=== PATIENT | male | born 1960 | race Caucasian/White ===

== ENCOUNTER 2020-02-03 18:42 | Inpatient (IN) | payer BC ==
--- NOTE | 2020-02-03 19:52 | EDM.PDOC ---
ED HPI GENERAL MEDICAL PROBLEM - General Chief Complaint: Head Injury Stated Complaint: FALL HEAD INJURY NO SLEEP IN 4 DAYS Time Seen by Provider: 02/03/20 19:25 Source of Information: Reports: Patient, Family () History Limitations: Reports: Physical Impairment (Poor historian. Much of PMHx from his .) - History of Present Illness INITIAL COMMENTS - FREE TEXT/NARRATIVE: Mr. Szymanski is a pleasant 59-year-old man with a past medical history significant for hypertension, dyslipidemia, hypothyroidism, and GERD, status post a Venus fundoplication, who states that he has binge-pattern alcoholism, sober for the past 11 years, up until this past 01/27/2020, when his is out of town and he purchased 2 bottles of wine, a six pack of beer, and a fifth of vodka, which he then consumed over 2 to 3 days. He is not really sure what happened during that period of time, except that he has an abrasion on his right forehead and left knee, a bruise to his upper right abdomen and anterior right knee, and he found blood in his driveway, so he presumes that he fell down his front steps. The patient takes [place] for chronic back pain, along with Ambien for insomnia, and his counted that he is 8 pills short of [place] and 4 pills short of Ambien. The patient states that he has not been able to sleep for the past 4 days, but when asked why he did not come in earlier , he states that he was simply unable to get out of bed. He thinks that his last alcoholic beverage was Thursday or Thursday, 01/29/2020 or 01/30/2020. The patient states that he has had watery diarrhea this week, but he also states that he gained 20 pounds over the last weekend. Otherwise, the patient denies recent fever, chills, cough, dyspnea, chest pain, palpitations, nausea, vomiting, constipation, urinary symptoms, recent bloody bowel movements or black bowel movements, recent joint aches, headaches, or rashes. The patient's PCP is Dr. Yanick Vinson. His Orthopedic Surgeon is Dr. Danilo Taylor. His pain specialist is Dr. Kam Cardenas. He received an influenza vaccine this season. Headache Pain Score (Numeric/FACES): 6 - Related Data Allergies Allergy/AdvReac Type Severity Reaction Status Date / Time No Known Allergies Allergy Verified 02/03/20 19:13 Home Meds: Home Meds Celecoxib 200 mg PO DAILY 02/03/20 [History] Fish Oil/[place]-3 Fatty Acids [Fish Oil 1,000 MG] 1 cap PO DAILY 02/03/20 [ History] Hydrocodone/Acetaminophen [Hydrocodon-Acetaminophn 10-325] 1 each PO Q6H PRN [History] Levothyroxine [Synthroid] 100 mcg PO DAILY 02/03/20 [History] Lisinopril/Hydrochlorothiazide [Lisinopril-Hctz 20-25 mg Tab] 1 tab PO DAILY [History] Pravastatin Sodium [Pravastatin (Pravachol)] 40 mg PO DAILY 02/03/20 [History] Zolpidem Tartrate [Zolpidem Tartrate ER] 12.5 mg PO BEDTIME 02/03/20 [History] amLODIPine Besylate [Amlodipine Besylate] 5 mg PO DAILY 02/03/20 [History] tiZANidine [Zanaflex] 4 mg PO Q6H 02/03/20 [History] Past Medical History Cardiovascular History: Reports: High Cholesterol, Hypertension Gastrointestinal History: Reports: Colon Polyp, GERD (untreated), PUD (bleeding) Genitourinary History: Reports: Renal Calculus Musculoskeletal History: Reports: Back Pain, Chronic (DDD) Psychiatric History: Reports: Addiction (alcohol), Other (See Below) (Insomnia) Endocrine/Metabolic History: Reports: Hypothyroidism - Past Surgical History GI Surgical History: Reports: Venus Fundoplication Musculoskeletal Surgical History: Reports: Shoulder Surgery (bilateral, arthroscopic) Social & Family History - Tobacco Use Smoking Status *Q: Never Smoker - Alcohol Use Alcohol Use History: Yes Alcohol Use Frequency: Binges - Recreational Drug Use Recreational Drug Use: Yes Drug Use in Last 12 Months: No Recreational Drug Type: Reports: Marijuana/Hashish (last smoked in HS) - Living Situation & Occupation Living situation: Reports: , with Spouse Occupation: Unemployed ED ROS GENERAL - Review of Systems Review Of Systems: Comprehensive ROS is negative, except as noted in HPI. ED EXAM, GENERAL - Physical Exam Exam: See Below Exam Limited By: Altered Mental Status (Had some cognitive difficulties following neuro exam commands) General Appearance: Alert, WD/WN, No Apparent Distress Eye Exam: Bilateral Eye: EOMI, Normal Inspection, Periorbital Changes (small exchymoses to bilateral upper and lower eyelids), PERRL Ears: Normal External Exam, Normal Canal, Hearing Grossly Normal, Normal TMs Nose: Normal Inspection, Normal Mucosa, No Blood Throat/Mouth: Normal Inspection, Normal Lips, Normal Teeth, Normal Gums, Normal Oropharynx, Normal Voice, No Airway Compromise Head: Normocephalic, Other (scabbed-over abrasion right forehead) Neck: Normal Inspection, Supple, Non-Tender, Full Range of Motion. No: Lymphadenopathy (L), Lymphadenopathy (R) Respiratory/Chest: No Respiratory Distress, Lungs Clear, Normal Breath Sounds, No Accessory Muscle Use Cardiovascular: Normal Peripheral Pulses, Regular Rate, Rhythm, No Edema, No Gallop, No JVD, No Murmur, No Rub Peripheral Pulses: 4+: Radial (L), Radial (R) GI/Abdominal: Normal Bowel Sounds, Soft, No Organomegaly, No Distention, No Abnormal Bruit, No Mass, Tender (To site of subtle ecchymosis, RUQ. Nontender elsewhere.) (Male) Exam: Deferred Rectal (Males) Exam: Deferred Back Exam: Normal Inspection, Full Range of Motion, NT Extremities: Normal Range of Motion, No Pedal Edema, Normal Capillary Refill, Other (Scabbed abrasion over left patella. Ecchymosis without abrasion to anterior right knee.) Neurological: Alert, Oriented, CN II-XII Intact (had some cognitive difficulties following some commands, such as to follow my finger with his eyes , and to extend his leg - he contracted it instead - but once followed, no focal deficits were found), No Motor/Sensory Deficits, Confused (mild - his needed to correct his history several times) Psychiatric: Normal Affect Skin Exam: Warm, Dry, Normal Color, No Rash Course - Vital Signs Last Recorded V/S: Last Vital Signs Temp 36.7 C 02/03/20 19:09 Pulse 91 02/03/20 19:09 Resp 19 02/03/20 19:09 BP 130/107 H 02/03/20 19:09 Pulse Ox 97 02/03/20 19:09 - Orders/Labs/Meds Orders: Active Orders 24 hr Category Date Time Status Patient Status [ADT] Routine ADT 02/03/20 22:43 Active Bladder Scan [RC] ASDIRECTED Care 02/03/20 19:46 Active Cervical Spine wo Cont [CT] Stat Exams 02/03/20 19:44 Taken Head wo Cont [CT] Stat Exams 02/03/20 19:44 Taken CULTURE URINE [RM] Stat Lab 02/03/20 20:43 Received Labs: Laboratory Tests 02/03/20 02/03/20 02/03/20 Range/Units 20:25 20:25 20:25 WBC 19.08 H (4.23-9.07) K/mm3 RBC 4.58 L (4.63-6.08) M/mm3 Hgb 14.2 (13.7-17.5) gm/dl Hct 40.0 L (40.1-51.0) % MCV 87.3 D (79.0-92.2) fl MCH 31.0 (25.7-32.2) pg MCHC 35.5 (32.2-35.5) g/dl RDW Std Deviation 39.4 (35.1-43.9) fL Plt Count 286 (163-337) K/mm3 MPV 9.3 L (9.4-12.3) fl Neut % (Auto) 85.7 H (34.0-67.9) % Lymph % (Auto) 6.7 L (21.8-53.1) % [place] % (Auto) 7.1 (5.3-12.2) % Eos % (Auto) 0 L (0.8-7.0) Baso % (Auto) 0.0 L (0.1-1.2) % Neut # (Auto) 16.36 H (1.78-5.38) K/mm3 Lymph # (Auto) 1.27 L (1.32-3.57) K/mm3 [place] # (Auto) 1.36 H (0.30-0.82) K/mm3 Eos # (Auto) 0.00 L (0.04-0.54) K/mm3 Baso # (Auto) 0.00 L (0.01-0.08) K/mm3 Manual Slide Review Abnormal smear PT 10.7 (9.7-12.0) SECONDS INR 0.98 APTT 28 (22-31) SECONDS Sodium 122 L D (136-145) mEq/L Potassium 3.0 L (3.5-5.1) mEq/L Chloride 84 L D (98-107) mEq/L Carbon Dioxide 29 (21-32) mEq/L Anion Gap 12.0 (5-15) BUN 22 H (7-18) mg/dL Creatinine 2.0 H (0.7-1.3) mg/dL Est Cr Clr Drug Dosing 36.72 mL/min Estimated GFR (MDRD) 34 (>60) mL/min BUN/Creatinine Ratio 11.0 L (14-18) Glucose 107 H (74-106) mg/dL Calcium 9.6 (8.5-10.1) mg/dL Magnesium 2.0 (1.8-2.4) mg/dl Total Bilirubin 0.8 (0.2-1.0) mg/dL AST 89 H (15-37) U/L ALT 77 H (16-63) U/L Alkaline Phosphatase 88 (46-116) U/L Total Protein 8.1 (6.4-8.2) g/dl Albumin 3.8 (3.4-5.0) g/dl Globulin 4.3 gm/dL Albumin/Globulin Ratio 0.9 L (1-2) Urine Color (Yellow) Urine Appearance (Clear) Urine pH (5.0-8.0) Ur Specific [place] (1.005-1.030) Urine Protein (Negative) Urine Glucose (UA) (Negative) Urine Ketones (Negative) Urine Occult Blood (Negative) Urine Nitrite (Negative) Urine Bilirubin (Negative) Urine Urobilinogen (0.2-1.0) Ur Leukocyte Esterase (Negative) Urine RBC (0-5) /hpf Urine WBC (0-5) /hpf Ur Squamous Epith Cells (0-5) /hpf Urine Bacteria (FEW) /hpf Urine Mucus (FEW) /hpf Urine Opiates Screen (ZTFHFN=942) Ur Buprenorphine Scrn (CUTOFF=10) Ur Oxycodone Screen (ZNY3BV=418) Urine Methadone Screen (PHP2HB=691) Ur Propoxyphene Screen (MHURFX=243) Ur Barbiturates Screen (UVQYHE=562) Ur Tricyclics Screen (SUIOLT=894) Ur Phencyclidine Scrn (CUTOFF=25) Ur Amphetamine Screen (OMYIQS=869) U Methamphetamines Scrn (DCNXVW=572) U Benzodiazepines Scrn (RKTDGY=016) U Cocaine Metab Screen (CSYOZQ=954) U Marijuana (THC) Screen (CUTOFF=50) Ethyl Alcohol 0.00 (0.00) gm% 02/03/20 02/03/20 Range/Units 20:43 20:43 WBC (4.23-9.07) K/mm3 RBC (4.63-6.08) M/mm3 Hgb (13.7-17.5) gm/dl Hct (40.1-51.0) % MCV (79.0-92.2) fl MCH (25.7-32.2) pg MCHC (32.2-35.5) g/dl RDW Std Deviation (35.1-43.9) fL Plt Count (163-337) K/mm3 MPV (9.4-12.3) fl Neut % (Auto) (34.0-67.9) % Lymph % (Auto) (21.8-53.1) % [place] % (Auto) (5.3-12.2) % Eos % (Auto) (0.8-7.0) Baso % (Auto) (0.1-1.2) % Neut # (Auto) (1.78-5.38) K/mm3 Lymph # (Auto) (1.32-3.57) K/mm3 [place] # (Auto) (0.30-0.82) K/mm3 Eos # (Auto) (0.04-0.54) K/mm3 Baso # (Auto) (0.01-0.08) K/mm3 Manual Slide Review PT (9.7-12.0) SECONDS INR APTT (22-31) SECONDS Sodium (136-145) mEq/L Potassium (3.5-5.1) mEq/L Chloride (98-107) mEq/L Carbon Dioxide (21-32) mEq/L Anion Gap (5-15) BUN (7-18) mg/dL Creatinine (0.7-1.3) mg/dL Est Cr Clr Drug Dosing mL/min Estimated GFR (MDRD) (>60) mL/min BUN/Creatinine Ratio (14-18) Glucose (74-106) mg/dL Calcium (8.5-10.1) mg/dL Magnesium (1.8-2.4) mg/dl Total Bilirubin (0.2-1.0) mg/dL AST (15-37) U/L ALT (16-63) U/L Alkaline Phosphatase (46-116) U/L Total Protein (6.4-8.2) g/dl Albumin (3.4-5.0) g/dl Globulin gm/dL Albumin/Globulin Ratio (1-2) Urine Color Yellow (Yellow) Urine Appearance Clear (Clear) Urine pH 7.0 (5.0-8.0) Ur Specific [place] 1.015 (1.005-1.030) Urine Protein 2+ H (Negative) Urine Glucose (UA) Negative (Negative) Urine Ketones 1+ H (Negative) Urine Occult Blood 1+ H (Negative) Urine Nitrite Negative (Negative) Urine Bilirubin 1+ H (Negative) Urine Urobilinogen 0.2 (0.2-1.0) Ur Leukocyte Esterase Negative (Negative) Urine RBC 0-5 (0-5) /hpf Urine WBC 5-10 H (0-5) /hpf Ur Squamous Epith Cells 0-5 (0-5) /hpf Urine Bacteria Moderate H (FEW) /hpf Urine Mucus Few (FEW) /hpf Urine Opiates Screen Presumptive positive H (GXZXIR=891) Ur Buprenorphine Scrn Negative (CUTOFF=10) Ur Oxycodone Screen Negative (ODL2LL=956) Urine Methadone Screen Negative (BNK0NE=028) Ur Propoxyphene Screen Negative (QYWMFU=705) Ur Barbiturates Screen Negative (MNUZFR=591) Ur Tricyclics Screen Negative (XYEGWF=610) Ur Phencyclidine Scrn Negative (CUTOFF=25) Ur Amphetamine Screen Negative (VERHEK=326) U Methamphetamines Scrn Negative (PARGGI=030) U Benzodiazepines Scrn Negative (DNFSBC=444) U Cocaine Metab Screen Negative (QYFUKT=271) U Marijuana (THC) Screen Negative (CUTOFF=50) Ethyl Alcohol (0.00) gm% Meds: Medications Discontinued Medications Generic Name Dose Route Start Last Admin Trade Name Freq PRN Reason Stop Dose Admin Lactated Ringer's 1,000 mls @ 999 mls/hr 02/03/20 21:09 02/03/20 21:51 Ringers, Lactated IV 02/03/20 22:09 999 mls/hr .BOLUS ONE Administration Potassium Chloride 40 meq 02/03/20 21:10 02/03/20 21:51 Klor-Con M20 PO 02/03/20 21:11 40 meq ONETIME ONE Administration - Re-Assessments/Exams Free Text/Narrative Re-Assessment/Exam: 02/03/20 19:47 My primary concern for this patient is of a traumatic brain injury. I have therefore ordered a CT of his head and cervical spine without contrast. The patient is also behaving very much as if he is intoxicated. I do not know if that is his norm, or the result of a head injury, but I have ordered an alcohol level and a urine drug screen. I am also concerned about his report of sudden 20 pound weight gain over 2 or 3 days at the beginning of this week. Perhaps the patient ate a lot of salt, but I have ordered a work-up that includes some blood work. Lastly, the patient tells me that he basically has not urinated all week, except here in the ED. I have therefore ordered a urinalysis and a postvoid bladder scan. 02/03/20 20:45 CT of the head without contrast as read by [facility] as "No acute intracranial abnormality." 02/03/20 20:54 CT of the cervical spine without contrast as read by [facility] as: 1. No fracture or malalignment. 2. Mild degenerative spondylosis. 02/03/20 21:07 The patient CBC is remarkable for a WBC count elevated at 19.08 with a manual slide review indicating leukocytosis, neutrophilia, lymphopenia, moderate toxic granulation of PMNs, and few vacuolated cytoplasm of PMNs. His Hct is mildly depressed at 40, with a Hgb normal at 14.2. The remainder of his CBC is unremarkable. His CMP is remarkable for a sodium significantly depressed at 122, with a potassium depressed at 3.0, and a chloride of 84. His BUN/Cr are elevated at 22 /2.0, and his blood glucose is slightly elevated 107. His AST/ALT are mildly elevated at 89/77, with the remainder of his CMP being unremarkable. His magnesium level is within normal limits at 2.0. His EtOH level is 0.00. His coags are within normal limits. His urinalysis, urine drug screen, and post-void bladder scan are still pending. Based on the above, I have ordered 1 L of LR and 40 mEq of oral KCl. 02/03/20 21:44 The patient's urinalysis is remarkable for 1+ occult blood but with 0-5 RBCs, leukocyte esterase negative with 5-10 WBCs, nitrate negative with moderate bacteria, and 0-5 squamous epithelial cells. His urine drug screen is positive for opiates, but is otherwise negative. The patient's urinalysis is not consistent enough with a UTI to warrant antibiotics at this time, particularly because the patient is not suffering from dysuria, however, I have ordered a urine culture. 02/03/20 22:13 Test results discussed with the patient and his . As above, the patient is primarily suffering from hyponatremia, hypokalemia, and renal insufficiency. I explained that because we have no prior labs to compare, we do not know if his renal insufficiency is new or old. I am recommending that we treat the patient with IV fluid oral KCl overnight, follow his labs, then he can be discharged home once his electrolytes have normalized. The patient is agreeable. I will write bridge orders and notify the Hospitalist in the morning. 02/03/20 22:53 Notified that the patient's earlier post-void bladder scan found over 400 mL of residual urine. This may be the cause of his renal insufficiency. The patient has already been transported to the floor. I have asked Hellen MORRIS to call over to the floor to have them place a Klein catheter and start the patient on tamsulosin 0.4 mg with a voice order from me. Departure - Departure Time of Disposition: 22:14 Disposition: Refer to Observation Condition: Good Clinical Impression: Hyponatremia, Hypokalemia, Renal insufficiency, Alcohol dependence, binge pattern, Urinary retention - Discharge Information *PRESCRIPTION DRUG MONITORING PROGRAM REVIEWED*: Not Applicable *COPY OF PRESCRIPTION DRUG MONITORING REPORT IN PATIENT LUL: Not Applicable Referrals: Yanick Vinson MD [Ordering Only Provider] - Danilo Taylor MD [Consulting Physician] - Kam Cardenas MD [Ordering Only Provider] - Forms: ED Department Discharge Sepsis Event Note - Evaluation Sepsis Screening Result: No Definite Risk - Focused Exam Vital Signs: Vital Signs Temp Pulse Resp BP Pulse Ox 02/03/20 19:09 36.7 C 91 19 130/107 H 97 Date Exam was Performed: 02/03/20 Time Exam was Performed: 22:53 - My Orders Last 24 Hours: My Active Orders 02/03/20 19:44 Cervical Spine wo Cont [CT] Stat Head wo Cont [CT] Stat 02/03/20 19:46 Bladder Scan [RC] ASDIRECTED 02/03/20 20:43 CULTURE URINE [RM] Stat 02/03/20 22:43 Patient Status [ADT] Routine - Assessment/Plan Last 24 Hours: My Active Orders 02/03/20 19:44 Cervical Spine wo Cont [CT] Stat Head wo Cont [CT] Stat 02/03/20 19:46 Bladder Scan [RC] ASDIRECTED 02/03/20 20:43 CULTURE URINE [RM] Stat 02/03/20 22:43 Patient Status [ADT] Routine
[2020-02-03] MEDS ORDERED: Lactated Ringers 1,000 ML IV ONE (21:09)
[2020-02-03] MEDS ORDERED: Potassium Chloride 20 MEQ Tab.ER PO ONE ×2 (21:10→23:28)
[2020-02-03] MEDS ORDERED: Lactated Ringers 1,000 ML IV SCH (23:30)
[2020-02-04] MEDS: Sodium Chloride 0.9% 1,000 ML IV SCH ×2 (00:24→06:52)
[2020-02-04] MEDS: Potassium Chloride 10 MEQ in Premix Bag 1 BAG IV SCH ×3 (00:25→02:27)
[2020-02-04] MEDS ORDERED: Tamsulosin 0.4 MG Cap.ER PO ONE (01:31)
--- NOTE | 2020-02-04 13:34 | PCM.HP.2 ---
H&P History of Present Illness - General Date of Service: 02/04/20 Admit Problem/Dx: Admission Diagnosis/Problem Admission Diagnosis/Problem Hyponatremia - History of Present Illness Initial Comments - Free Text/Narative: This is a 59-year-old man with a past medical history of hypertension, dyslipidemia, hypothyroidism, and GERD who is brought to the ED by for altered mental status. As per patient he has a history of alcoholism and he has been sober for 11 years. He was in his usual state of health until 1 week ago when he drove in to town to buy alcohol. He bough a 6 pack, 2 bottles of wine and 1 bottle of vodka , all of which he drank between 2 and 3 days. The next couple of days are a bit of a "blur" as he doesn't really recall the chain of events. He does however know that he fell outside, hit his head, knee and abdomen; he assumed this happened in the driveway since that is where he found a stain of blood. Of note patient takes [place] 10 for chronic back pain and Ambien for insomnia. notes he is missing around 8 pills from his monthly prescription of [place] and 4 from the Ambien. Patient states he has been unable to sleep in about 4 days yet he has been unable to get out of bed. States his last drink was 3/8 or 9. Endorses watery diarrhea and 20lb weight gain. Headache Pain Score (Numeric/FACES): 2 - Related Data Allergies/Adverse Reactions: Allergies Allergy/AdvReac Type Severity Reaction Status Date / Time No Known Allergies Allergy Verified 02/04/20 00:27 Home Medications: Home Meds Celecoxib 200 mg PO DAILY 02/03/20 [History] Fish Oil/[place]-3 Fatty Acids [Fish Oil 1,000 MG] 1 cap PO DAILY 02/03/20 [ History] Hydrocodone/Acetaminophen [Hydrocodon-Acetaminophn 10-325] 1 each PO Q6H PRN [History] Levothyroxine [Synthroid] 100 mcg PO DAILY 02/03/20 [History] Lisinopril/Hydrochlorothiazide [Lisinopril-Hctz 20-25 mg Tab] 1 tab PO DAILY [History] Pravastatin Sodium [Pravastatin (Pravachol)] 40 mg PO DAILY 02/03/20 [History] Zolpidem Tartrate [Zolpidem Tartrate ER] 12.5 mg PO BEDTIME 02/03/20 [History] amLODIPine Besylate [Amlodipine Besylate] 5 mg PO DAILY 02/03/20 [History] tiZANidine [Zanaflex] 4 mg PO Q6H 02/03/20 [History] Past Medical History HEENT History: Reports: Other (See Below) Other HEENT History: states he wears glasses for reading but does not have any here with him. Cardiovascular History: Reports: High Cholesterol, Hypertension Gastrointestinal History: Reports: Colon Polyp, GERD, PUD Genitourinary History: Reports: Renal Calculus Musculoskeletal History: Reports: Back Pain, Chronic Psychiatric History: Reports: Addiction, Other (See Below) Other Psychiatric History: Pt has been sober since 2010 but drank last weekend Endocrine/Metabolic History: Reports: Hypothyroidism Do You Give Correction Boluses or Sliding Scale: No - Infectious Disease History Infectious Disease History: Reports: Influenza - Past Surgical History HEENT Surgical History: Reports: None Cardiovascular Surgical History: Reports: None GI Surgical History: Reports: Venus Fundoplication Male Surgical History: Reports: None Endocrine Surgical History: Reports: None Musculoskeletal Surgical History: Reports: None, Shoulder Surgery Social & Family History - Family History Family Medical History: Noncontributory - Tobacco Use Smoking Status *Q: Never Smoker Second Hand Smoke Exposure: No - Alcohol Use Date of Last Drink: 01/29/20 - Recreational Drug Use Recreational Drug Use: No Drug Use in Last 12 Months: No Recreational Drug Type: Reports: Marijuana/Hashish (last smoked in HS) - Living Situation & Occupation Living situation: Reports: , with Spouse Occupation: Unemployed H&P Review of Systems - Review of Systems: Review Of Systems: See Below General: Reports: Weakness. Denies: Fever, Chills, Malaise, Fatigue, Night Sweats, Diaphoresis, Decreased Appetite, Weight Loss, Weight Gain HEENT: Denies: Dysphasia, Ear Pain, Eye Pain, Glasses, Headaches, Hearing Changes, Rhinitis, Post Nasal Drip, Sinus Congestion, Sore Throat, Vertigo, Visual Changes Pulmonary: Denies: Shortness of Breath, Wheezing, Pleuritic Chest Pain, Cough, Sputum, Hemoptysis Cardiovascular: Denies: Chest Pain, Palpitations, Dyspnea on Exertion, Orthopnea , PND, Edema, Lightheadedness, Syncope, Claudication Gastrointestinal: Reports: Diarrhea. Denies: Abdominal Pain, Anorexia, Black Stool, Bloody Stool, Constipation, Decreased Appetite, Difficulty Swallowing, Distension, Flatus, Hematemesis, Hematochezia, Melena, Mucous in Stool, Nausea, Stool Incontinence, Vomiting Genitourinary: Denies: Dysuria, Frequency, Burning, Pain, Urgency, Incontinence Musculoskeletal: Reports: Shoulder Pain, Arm Pain, Leg Pain, Muscle Pain. Denies: Muscle Stiffness Skin: Denies: Cyanosis, Jaundice, Mottled, Pallor, Diaphoresis Psychiatric: Reports: Confusion, Other (insomnia). Denies: Depression, Mood Lability, Anxiety, Agitation Exam - Exam Exam: See Below - Vital Signs Vital Signs: Last Vital Signs Temp 97.9 F 02/04/20 12:53 Pulse 102 H 02/04/20 12:53 Resp 16 02/04/20 12:53 BP 139/80 02/04/20 12:53 Pulse Ox 96 02/04/20 12:53 Weight: 102.875 kg - Exam General: Alert, Oriented, Cooperative, Mild Distress HEENT: EACs Clear, EOMI, Hearing Intact, Mucosa Moist & [place], Pupils Equal, Pupils Reactive, Other (small excoriation on nasal bridge and above right eyebrow) Neck: Supple, Trachea Midline, +2 Carotid Pulse wo Bruit, Full Range of Motion. No: Lymphadenopathy Lungs: Clear to Auscultation, Normal Respiratory Effort. No: Crackles, Rales, Rhonchi, Rub, Wheezing Cardiovascular: Regular Rate, Regular Rhythm. No: Systolic Murmur, Diastolic Murmur, Rubs, Gallop/S3, Gallop/S4 GI/Abdominal Exam: Normal Bowel Sounds, Soft, Non-Tender. No: Distended, Guarding, Rigid, Rebound Back Exam: Normal Inspection. No: CVA Tenderness (L), CVA Tenderness (R), Paraspinal Tenderness, Vertebral Tenderness Extremities: Normal Inspection, Limited Range of Motion (right shoulder, multiple excoriations throughout) Skin: Warm, Dry, Wound - Patient Data Result Diagrams: 02/03/20 20:25 02/04/20 14:35 Sepsis Event Note - Evaluation Sepsis Screening Result: No Definite Risk - Focused Exam Vital Signs: Vital Signs Temp Temp Pulse Pulse Resp BP BP 02/04/20 12:53 97.9 F 102 H 16 139/80 02/04/20 08:25 99.5 F 82 16 136/77 02/04/20 08:00 99.5 F 80 16 136/77 02/04/20 06:20 98.1 F 85 18 144/60 H 02/04/20 04:42 98.6 F 102 H 17 143/82 H Pulse Ox 02/04/20 12:53 96 02/04/20 08:25 92 L 02/04/20 08:00 92 L 02/04/20 06:20 93 L 02/04/20 04:42 100 Date Exam was Performed: 02/04/20 Time Exam was Performed: 16:45 - Problem List (1) Hyponatremia SNOMED Code(s): 73406648 ICD Code: E87.1 - HYPO-OSMOLALITY AND HYPONATREMIA Status: Acute Current Visit: Yes (2) Volume depletion SNOMED Code(s): 50882315 ICD Code: E86.9 - VOLUME DEPLETION, UNSPECIFIED Status: Acute Current Visit: Yes (3) Hypokalemia SNOMED Code(s): 14699252 ICD Code: E87.6 - HYPOKALEMIA Status: Acute Current Visit: Yes (4) Acute kidney injury SNOMED Code(s): 03829904, 82113324 ICD Code: N17.9 - ACUTE KIDNEY FAILURE, UNSPECIFIED Status: Acute Current Visit: Yes (5) Chronic kidney disease (CKD), stage III (moderate) SNOMED Code(s): 464289878 ICD Code: N18.3 - CHRONIC KIDNEY DISEASE, STAGE 3 (MODERATE) Status: Acute Current Visit: Yes (6) Leukocytosis SNOMED Code(s): 974602486, 617516770 ICD Code: D72.829 - ELEVATED WHITE BLOOD CELL COUNT, UNSPECIFIED Status: Acute Current Visit: Yes (7) Diarrhea SNOMED Code(s): 51098594 ICD Code: R19.7 - DIARRHEA, UNSPECIFIED Status: Acute Current Visit: Yes (8) Opioid contract exists SNOMED Code(s): 269376255, 194682150 ICD Code: Z79.891 - DIALYSIS TECHNICIAN (CURRENT) USE OF OPIATE ANALGESIC Status: Acute Current Visit: Yes (9) Insomnia SNOMED Code(s): 290136909 ICD Code: G47.00 - INSOMNIA, UNSPECIFIED Status: Acute Current Visit: Yes (10) Rotator cuff injury SNOMED Code(s): 436282650 ICD Code: S46.009A - UNSP INJ MUSC/TEND THE ROTATOR CUFF OF UNSP SHOULDER, INIT Status: Acute Current Visit: Yes (11) Hypothyroidism SNOMED Code(s): 19863428 ICD Code: E03.9 - HYPOTHYROIDISM, UNSPECIFIED Status: Acute Current Visit : Yes (12) Dyslipidemia SNOMED Code(s): 019754668 ICD Code: E78.5 - HYPERLIPIDEMIA, UNSPECIFIED Status: Acute Current Visit : Yes (13) Hypertension SNOMED Code(s): 62552992 ICD Code: I10 - ESSENTIAL (PRIMARY) HYPERTENSION Status: Acute Current Visit: Yes (14) Alcohol dependence, binge pattern SNOMED Code(s): 564592512 ICD Code: F10.20 - ALCOHOL DEPENDENCE, UNCOMPLICATED Status: Acute Current Visit: Yes (15) Urinary retention SNOMED Code(s): 941407916 ICD Code: R33.9 - RETENTION OF URINE, UNSPECIFIED Status: Acute Current Visit: Yes Problem List Initiated/Reviewed/Updated: Yes Assessment/Plan Comment:: ASSESSMENT Day 1 - Patient brought in by for altered mental status and slurring of speech - Found to be hyponatremic in ED, likely multifactorial - Hypovolemic 2/2 diarrhea - Alcohol ingestion, beer - Decreased oral intake - Acute kidney injury - BP on admission 130/107 - Patient states he had not been taking medications this past week - Home management with amlodipine, lisinopril and HCTZ - Pain contract with [place] due to rotator cuff lesion and chronic back pain, + UDS on admission - Acute kidney injury likely 2/2 volume depletion from decreased oral intake and GI losses 2/2 diarrhea - AMS and slurred speech 2/2 hyponatremia - CT head in ED negative - Neurologic physical exam is normal except for slurred speech and recall - Unable to assess cognitive level due to sleep deprivation, will evaluate once patient has slept - Urinary retention in ED, catheterized urine x 2, third episode on floor--> Klein catheter placed PLAN BY PROBLEM Hypovolemic hyponatremia Hypokalemia Acute on Chronic kidney disease (CKD), stage III (moderate) GI loss 2/2 diarrhea - Fluid restriction to 1.5L - Change rate 6-8mEq/24 hours - Repeat blood work every 4 hours - Monitor mental status - Orthostatic VS - D/C NS - Replace K - Monitor urine output - Avoid nephrotoxic medications - Renally dosed medications Urinary retention - Klein catheter care Hypertension - Continue home Amlodipine and lisinopril - Hold hydrochlorothiazide - PRN hydralazine Leukocytosis Diarrhea - Repeat labs in AM - Monitor GI losses Insomnia - Continue home Ambien Rotator cuff injury Opioid contract exists - Continue home medications to avoid withdrawal Hypothyroidism - TSH level - Continue home med Alcohol dependence, binge pattern - Monitor for withdrawal - Thiamine and folic acid supplementation PROPHYLAXIS DVT- compression stockings GI- not indicated CODE STATUS: FULL CODE DISPOSITION: Patient will be admitted to the medical floor for sodium replacement under monitorization, repeat labs every 4 hours. Is currently living in [place] with , lives in house. Would likely benefit from rehab after discharge, will discuss during admission. - Mortality Measure Prognosis:: Good
--- NOTE | 2020-02-04 14:05 | CT ---
Head CT Technique: Multiple axial sections through the brain were obtained. Intravenous contrast was not utilized. Comparison: No prior intracranial imaging is available. Findings: Ventricles along with basal cisterns and sulci over the convexities are within normal limits for the patient's age. No abnormal parenchymal densities are seen. No evidence of intracranial hemorrhage. No midline shift or mass-effect is seen. Mild mucosal thickening is seen within the ethmoid sinuses. Other visualized sinuses show nothing acute. No acute findings within the mastoid sinuses are seen. No acute calvarial abnormality is identified. Impression: 1. Mild mucosal thickening within the ethmoid sinus most likely chronic. 2. No acute intracranial abnormality is identified. Diagnostic code #2 This report was dictated in MDT I agree with preliminary report from [facility], finalized on 02/03/20, 9:41 PM Central Time
--- NOTE | 2020-02-04 14:05 | CT ---
CT cervical spine Technique: Multiple axial sections were obtained from above C1 inferiorly to the top of T2. Reconstructed sagittal and coronal images were reviewed. Comparison: No prior cervical spine imaging is available. Findings: Diffuse disc space narrowing is seen throughout the cervical spine. Anterior endplate osteophytes are also noted throughout the cervical spine as well as upper thoracic spine. Bony density is seen off the spinous process of T1 which appears to represent an old injury. Mild ligamentum nuchal calcification is seen. Moderate bilateral neural foraminal stenosis is noted at C3-4. Other neural foramina are patent. No bony central canal stenosis is seen. No acute fracture is appreciated. No abnormal subluxation is seen. Mild degenerative change is scattered throughout the apophyseal joints. Impression: 1. Diffuse degenerative change as noted above. 2. No acute abnormality is identified. Diagnostic code #2 This report was dictated in MDT I agree with preliminary report from [facility], finalized on 02/03/20, 9:45 PM Central Time
[2020-02-04] MEDS ORDERED: Dextrose 5% in Water 1,000 ML IV SCH ×2 (16:15→23:30)
[2020-02-04] MEDS ORDERED: Acetaminophen/HYDROcodone 325-10 MG Tab PO PRN (19:34)
[2020-02-04] MEDS: tiZANidine 4 MG Tab PO SCH (21:06)
[2020-02-04] MEDS: Zolpidem 10 MG Tab PO SCH (21:06)
[2020-02-05] MEDS ORDERED: Dextrose 5% in Water 1,000 ML IV SCH ×2 (04:00→07:00)
[2020-02-05] MEDS: tiZANidine 4 MG Tab PO SCH ×5 (04:43→21:12)
[2020-02-05] MEDS: Levothyroxine 100 MCG Tab PO SCH (06:19)
[2020-02-05] MEDS ORDERED: Hydrochlorothiazide 25 MG Tab PO SCH (09:00)
[2020-02-05] MEDS: Potassium Chloride 10 MEQ in Premix Bag 1 BAG IV SCH ×6 (09:19→15:28)
[2020-02-05] MEDS: amLODIPine 5 MG Tab PO SCH (09:26)
[2020-02-05] MEDS: Celecoxib 100 MG Cap PO SCH (09:26)
[2020-02-05] MEDS: Lisinopril 20 MG Tab PO SCH (09:30)
[2020-02-05] MEDS: Simvastatin 20 MG Tab PO SCH (09:30)
[2020-02-05] MEDS: Enoxaparin 40 MG/0.4 ML Syringe SUBCUT SCH (09:30)
--- NOTE | 2020-02-05 10:10 | PCM.PN ---
- General Info Date of Service: 02/05/20 Subjective Update: BM prior to admission Tolerating diet Slept OK Ambulating with assistance - Patient Data Vitals - Most Recent: Last Vital Signs Temp 98.6 F 02/05/20 04:05 Pulse 100 02/05/20 04:05 Resp 16 02/05/20 04:05 BP 138/78 02/05/20 09:30 Pulse Ox 99 02/05/20 04:05 Weight - Most Recent: 101.514 kg - Exam Quality Assessment: DVT Prophylaxis. No: Supplemental Oxygen, Central Line/PICC , Urine Catheter General: Alert, Oriented, Cooperative, No Acute Distress HEENT: Pupils Equal, Pupils Reactive, EOMI, Mucous Membr. Moist/[place] Neck: Supple, Trachea Midline, No JVD, No Thyromegaly, +2 Carotid Pulse wo Bruit Lungs: Clear to Auscultation, Normal Respiratory Effort. No: Crackles, Rales, Rhonchi, Rub, Stridor, Wheezing Cardiovascular: Regular Rate, Regular Rhythm. No: Murmurs, Gallops, Rubs GI/Abdominal Exam: Normal Bowel Sounds, Soft, Non-Tender. No: Distended, Guarding, Rigid, Rebound Back Exam: Normal Inspection. No: CVA Tenderness (L), CVA Tenderness (R), Paraspinal Tenderness, Vertebral Tenderness Extremities: Normal Inspection, Non-Tender, No Pedal Edema, Normal Capillary Refill Peripheral Pulses: 2+: Radial (L), Radial (R), Dorsalis Pedis (L), Dorsalis Pedis (R) Skin: Warm, Dry Neurological: No New Focal Deficit Sepsis Event Note - Evaluation Sepsis Screening Result: No Definite Risk - Focused Exam Vital Signs: Vital Signs Temp Pulse Resp BP Pulse Ox 02/05/20 09:30 138/78 02/05/20 09:26 137/78 02/05/20 04:05 98.6 F 100 16 165/83 H 99 02/05/20 01:43 93 159/71 H 98 Date Exam was Performed: 02/05/20 Time Exam was Performed: 12:51 - Problem List & Annotations (1) Hyponatremia SNOMED Code(s): 95832780 Code(s): E87.1 - HYPO-OSMOLALITY AND HYPONATREMIA Status: Acute Current Visit: Yes (2) Volume depletion SNOMED Code(s): 03298413 Code(s): E86.9 - VOLUME DEPLETION, UNSPECIFIED Status: Acute Current Visit: Yes (3) Hypokalemia SNOMED Code(s): 51563823 Code(s): E87.6 - HYPOKALEMIA Status: Acute Current Visit: Yes (4) Acute kidney injury SNOMED Code(s): 05302664, 37057286 Code(s): N17.9 - ACUTE KIDNEY FAILURE, UNSPECIFIED Status: Acute Current Visit: Yes (5) Chronic kidney disease (CKD), stage III (moderate) SNOMED Code(s): 366925405 Code(s): N18.3 - CHRONIC KIDNEY DISEASE, STAGE 3 (MODERATE) Status: Acute Current Visit: Yes (6) Leukocytosis SNOMED Code(s): 978059019, 123697380 Code(s): D72.829 - ELEVATED WHITE BLOOD CELL COUNT, UNSPECIFIED Status: Acute Current Visit: Yes (7) Diarrhea SNOMED Code(s): 78626405 Code(s): R19.7 - DIARRHEA, UNSPECIFIED Status: Acute Current Visit: Yes (8) Opioid contract exists SNOMED Code(s): 366703667, 095035994 Code(s): Z79.891 - PRISON (CURRENT) USE OF OPIATE ANALGESIC Status: Acute Current Visit: Yes (9) Insomnia SNOMED Code(s): 104510628 Code(s): G47.00 - INSOMNIA, UNSPECIFIED Status: Acute Current Visit: Yes (10) Rotator cuff injury SNOMED Code(s): 212155486 Code(s): S46.009A - UNSP INJ MUSC/TEND THE ROTATOR CUFF OF UNSP SHOULDER, INIT Status: Acute Current Visit: Yes (11) Hypothyroidism SNOMED Code(s): 23728881 Code(s): E03.9 - HYPOTHYROIDISM, UNSPECIFIED Status: Acute Current Visit : Yes (12) Dyslipidemia SNOMED Code(s): 681355613 Code(s): E78.5 - HYPERLIPIDEMIA, UNSPECIFIED Status: Acute Current Visit : Yes (13) Hypertension SNOMED Code(s): 31409104 Code(s): I10 - ESSENTIAL (PRIMARY) HYPERTENSION Status: Acute Current Visit: Yes (14) Alcohol dependence, binge pattern SNOMED Code(s): 528940447 Code(s): F10.20 - ALCOHOL DEPENDENCE, UNCOMPLICATED Status: Acute Current Visit: Yes (15) Urinary retention SNOMED Code(s): 495553772 Code(s): R33.9 - RETENTION OF URINE, UNSPECIFIED Status: Acute Current Visit: Yes (16) Hypophosphatemia SNOMED Code(s): 1593163 Code(s): E83.39 - OTHER DISORDERS OF PHOSPHORUS METABOLISM Status: Acute Current Visit: Yes - Problem List Review Problem List Initiated/Reviewed/Updated: Yes - Plan Plan:: ASSESSMENT Day 1 - Patient brought in by for altered mental status and slurring of speech - Found to be hyponatremic in ED, likely multifactorial - Hypovolemic 2/2 diarrhea - Alcohol ingestion, beer - Decreased oral intake - Acute kidney injury - BP on admission 130/107 - Patient states he had not been taking medications this past week - Home management with amlodipine, lisinopril and HCTZ - Pain contract with [place] due to rotator cuff lesion and chronic back pain, + UDS on admission - Acute kidney injury likely 2/2 volume depletion from decreased oral intake and GI losses 2/2 diarrhea - AMS and slurred speech 2/2 hyponatremia - CT head in ED negative - Neurologic physical exam is normal except for slurred speech and recall - Unable to assess cognitive level due to sleep deprivation, will evaluate once patient has slept - Urinary retention in ED, catheterized urine x 2, third episode on floor--> Klein catheter placed Day 2 - Sodium trend 132-->134-->134-->137-->137 - K down from 3.1-->2.9 - PO4 up from 1.5-->2.1 - Mental status improved - BP trend 136-150/60-82 - HR trend 82-102x' - Tmax 99.5 - Urine output 2,400 - PADMINI improved--> GFR from 45-->59 - Glucose trend 108-138 - Tolerating regular diet - Max increase in Na for today should not be higher than 140 PLAN BY PROBLEM Hypovolemic hyponatremia Hypokalemia Acute on Chronic kidney disease (CKD), stage III (moderate) GI loss 2/2 diarrhea - Fluid restriction to 1.5L - Change rate 6-8mEq/24 hours - Repeat blood work every 4 hours - Monitor mental status - Replace K - Monitor urine output - Avoid nephrotoxic medications - Renally dosed medications Urinary retention - Klein catheter care - UO goal >50ml/hr Hypertension - Continue home Amlodipine, Lisinopril - PRN hydralazine Insomnia - Continue home Ambien Rotator cuff injury Opioid contract exists - Continue home medications to avoid withdrawal Hypothyroidism - TSH level - Continue home med Alcohol dependence, binge pattern - Monitor for withdrawal - Thiamine and folic acid supplementation Leukocytosis, improved Diarrhea, resolved PROPHYLAXIS DVT- Lovenox GI- not indicated CODE STATUS: FULL CODE DISPOSITION: Patient will remain admitted to the medical floor for sodium replacement under monitorization, repeat labs every 4 hours. Is currently living in [place] with , lives in house. Would likely benefit from rehab after discharge, will discuss during admission.
[2020-02-05] MEDS ORDERED: Diphenhydramine/Lidocaine/MagAl/Simethicone 119 ML Bottle PO PRN (15:51)
[2020-02-05] MEDS ORDERED: Thiamine 100 MG Tab PO SCH (21:00)
[2020-02-05] MEDS: Zolpidem 10 MG Tab PO SCH (21:12)
[2020-02-06] MEDS: tiZANidine 4 MG Tab PO SCH ×4 (02:35→13:42)
[2020-02-06] MEDS: Levothyroxine 100 MCG Tab PO SCH (06:12)
[2020-02-06] MEDS ORDERED: Folic Acid 1 MG Tab PO SCH (09:00)
[2020-02-06] MEDS: Simvastatin 20 MG Tab PO SCH (09:07)
[2020-02-06] MEDS: Celecoxib 100 MG Cap PO SCH (09:07)
[2020-02-06] MEDS: amLODIPine 5 MG Tab PO SCH (09:08)
[2020-02-06] MEDS: Lisinopril 20 MG Tab PO SCH (09:08)
[2020-02-06] MEDS: Enoxaparin 40 MG/0.4 ML Syringe SUBCUT SCH (09:08)
[2020-02-06] MEDS ORDERED: Magnesium Oxide 400 MG Tab PO ONE (11:45)
[2020-02-06] MEDS ORDERED: Potassium Chloride 20 MEQ Tab.ER PO SCH (11:45)
--- NOTE | 2020-02-06 14:15 | PCM.DCSUM1 ---
Discharge Summary - Hospital Course HPI Initial Comments: This is a 59-year-old man with a past medical history of hypertension, dyslipidemia, hypothyroidism, and GERD who is brought to the ED by for altered mental status. As per patient he has a history of alcoholism and he has been sober for 11 years. He was in his usual state of health until 1 week ago when he drove in to town to buy alcohol. He bough a 6 pack, 2 bottles of wine and 1 bottle of vodka , all of which he drank between 2 and 3 days. The next couple of days are a bit of a "blur" as he doesn't really recall the chain of events. He does however know that he fell outside, hit his head, knee and abdomen; he assumed this happened in the driveway since that is where he found a stain of blood. Of note patient takes Belton 10 for chronic back pain and Ambien for insomnia. notes he is missing around 8 pills from his monthly prescription of Belton and 4 from the Ambien. Patient states he has been unable to sleep in about 4 days yet he has been unable to get out of bed. States his last drink was 3/8 or 9. Endorses watery diarrhea and 20lb weight gain. Diagnosis: Stroke: No - Discharge Data Discharge Date: 02/06/20 (Admit date: 02/03/20) Discharge Disposition: Home, Self-Care 01 Condition: Good - Referral to Home Health Primary Care Physician: PCP Not In Area - Discharge Diagnosis/Problem(s) (1) Acute kidney injury SNOMED Code(s): 69445958, 76144140 ICD Code: N17.9 - ACUTE KIDNEY FAILURE, UNSPECIFIED Status: Resolved Priority: High Current Visit: Yes (2) Alcohol dependence, binge pattern SNOMED Code(s): 843240238 ICD Code: F10.20 - ALCOHOL DEPENDENCE, UNCOMPLICATED Status: Chronic Priority: High Current Visit: Yes (3) Chronic kidney disease (CKD), stage III (moderate) SNOMED Code(s): 874280797 ICD Code: N18.3 - CHRONIC KIDNEY DISEASE, STAGE 3 (MODERATE) Status: Resolved Priority: High Current Visit: Yes (4) Diarrhea SNOMED Code(s): 20158640 ICD Code: R19.7 - DIARRHEA, UNSPECIFIED Status: Resolved Priority: High Current Visit: Yes Qualifiers: Diarrhea type: unspecified type Qualified Code(s): R19.7 - Diarrhea, unspecified (5) Dyslipidemia SNOMED Code(s): 875465579 ICD Code: E78.5 - HYPERLIPIDEMIA, UNSPECIFIED Status: Chronic Priority: Medium Current Visit: No (6) Hypertension SNOMED Code(s): 97869368 ICD Code: I10 - ESSENTIAL (PRIMARY) HYPERTENSION Status: Chronic Priority : Medium Current Visit: No Qualifiers: Hypertension type: unspecified Qualified Code(s): I10 - Essential (primary ) hypertension (7) Hypokalemia SNOMED Code(s): 57703231 ICD Code: E87.6 - HYPOKALEMIA Status: Acute Priority: High Current Visit: Yes (8) Hyponatremia SNOMED Code(s): 21315298 ICD Code: E87.1 - HYPO-OSMOLALITY AND HYPONATREMIA Status: Resolved Priority: High Current Visit: Yes (9) Hypophosphatemia SNOMED Code(s): 5419671 ICD Code: E83.39 - OTHER DISORDERS OF PHOSPHORUS METABOLISM Status: Resolved Priority: High Current Visit: Yes (10) Hypothyroidism SNOMED Code(s): 18757184 ICD Code: E03.9 - HYPOTHYROIDISM, UNSPECIFIED Status: Chronic Priority: Medium Current Visit: No Qualifiers: Hypothyroidism type: unspecified Qualified Code(s): E03.9 - Hypothyroidism , unspecified (11) Insomnia SNOMED Code(s): 047899558 ICD Code: G47.00 - INSOMNIA, UNSPECIFIED Status: Chronic Priority: Medium Current Visit: No Qualifiers: Insomnia type: unspecified Qualified Code(s): G47.00 - Insomnia, unspecified (12) Leukocytosis SNOMED Code(s): 950038021, 933982612 ICD Code: D72.829 - ELEVATED WHITE BLOOD CELL COUNT, UNSPECIFIED Status: Resolved Priority: High Current Visit: Yes Qualifiers: Leukocytosis type: unspecified Qualified Code(s): D72.829 - Elevated white blood cell count, unspecified (13) Opioid contract exists SNOMED Code(s): 441165714, 242134262 ICD Code: Z79.891 - LONGTERM (CURRENT) USE OF OPIATE ANALGESIC Status: Chronic Priority: Medium Current Visit: Yes (14) Renal insufficiency SNOMED Code(s): 071832863, 628419799 ICD Code: N28.9 - DISORDER OF KIDNEY AND URETER, UNSPECIFIED Status: Resolved Priority: High Current Visit: Yes (15) Rotator cuff injury SNOMED Code(s): 986962607 ICD Code: S46.009A - UNSP INJ MUSC/TEND THE ROTATOR CUFF OF UNSP SHOULDER, INIT Status: Chronic Priority: Medium Current Visit: No Qualifiers: Encounter type: sequela Laterality: unspecified laterality Qualified Code (s): S46.009S - Unspecified injury of muscle(s) and tendon(s) of the rotator cuff of unspecified shoulder, sequela (16) Urinary retention SNOMED Code(s): 585457730 ICD Code: R33.9 - RETENTION OF URINE, UNSPECIFIED Status: Resolved Priority: High Current Visit: Yes (17) Volume depletion SNOMED Code(s): 69545166 ICD Code: E86.9 - VOLUME DEPLETION, UNSPECIFIED Status: Resolved Priority : High Current Visit: Yes - Patient Summary/Data Labs Pending at D/C: None Recommended Follow-up Testing/Procedures: Follow-up with PCP within 5-7 days of discharge. Hospital Course: Kimo was admitted to the medical floor after being found by his with altered mental status and slurring of speech. He was found to be hyponatremic in the ED is believed that this is multifactorial due to diarrhea, alcohol ingestion, decreased oral intake, and acute kidney injury. His blood pressure was noted to be high at 130/107 and he does he has not been taking his home amlodipine, lisinopril, or HCTZ. He does have a pain contract in place, receiving Belton, due to a rotator cuff lesion and chronic back pain. He did have a positive urine drug screen on admission. His believe the kidney injury was likely due to decreased oral intake and GI losses from diarrhea. Is also believe that his altered mental status was second to hyponatremia. CT scan was obtained in the ED and was negative. Physical exam was normal and patient was noted to be sleep deprived. He was noted to have urinary retention in the ED x2 and on the floor a third episode was observed so a Hood catheter was placed. IV fluids were initiated his sodium did increase from 1 32-1 37. Potassium, phosphorus, and magnesium well supplemented. Folate and vitamin D were within normal limits. Vitamin B12 was slightly elevated His mental status did improve with treatment. His urine output improved and his kidney injury improved with a GFR going from 45-59. Able to tolerate a regular diet without diarrhea. Hood catheter was discontinued prior to discharge and he was able to void multiple times. He for a longstanding history of alcohol abuse and he was started on thiamine and folic acid. Social work did discuss the possible need for rehab with the patient and his . We also recommended he seek support such as Alcoholics Anonymous. As noted he was started on p.o. folic acid and thiamine and this was continued at discharge. He was given 3 days of 40 mEq oral potassium and 400 mg p.o. magnesium at discharge. Recommend he follow-up with his primary care provider within 5 to 7 days of discharge. Recommend recheck BMP, magnesium, phosphorus at that appointment. He was discharged today. - Patient Instructions Diet: Usual Diet as Tolerated Activity: As Tolerated Showering/Bathing: May Shower Notify Provider of: Fever, Increased Pain, Nausea and/or Vomiting Other/Special Instructions: Follow-up with your primary care provider within 5- 7 days of discharge, sooner if needed. Recommend re-check BMP, phosphorous, and magnesium at that appointment. Resume home medications as directed. Please take all new medications as directed. Stop drinking alcohol. Recommend a support group or rehabilitation center to assist with this. Should symptoms return or worsen, contact your primary care provider or return to the emergency department. - Discharge Plan *PRESCRIPTION DRUG MONITORING PROGRAM REVIEWED*: Not Applicable *COPY OF PRESCRIPTION DRUG MONITORING REPORT IN PATIENT LUL: Not Applicable Prescriptions/Med Rec: Folic Acid 1 mg PO DAILY #20 tablet Magnesium Oxide [Magnesium] 400 mg PO DAILY #3 tablet Potassium Chloride 40 meq PO DAILY 3 Days #6 tablet.er Thiamine [Vitamin B-1] 100 mg PO BEDTIME #20 tablet Home Medications: Home Meds Celecoxib 200 mg PO DAILY 02/03/20 [History] Fish Oil/[place]-3 Fatty Acids [Fish Oil 1,000 MG] 1 cap PO DAILY 02/03/20 [ History] Hydrocodone/Acetaminophen [Hydrocodon-Acetaminophn 10-325] 1 each PO Q6H PRN [History] Levothyroxine [Synthroid] 100 mcg PO DAILY 02/03/20 [History] Lisinopril/Hydrochlorothiazide [Lisinopril-Hctz 20-25 mg Tab] 1 tab PO DAILY [History] Pravastatin Sodium [Pravastatin (Pravachol)] 40 mg PO DAILY 02/03/20 [History] Zolpidem Tartrate [Zolpidem Tartrate ER] 12.5 mg PO BEDTIME 02/03/20 [History] amLODIPine Besylate [Amlodipine Besylate] 5 mg PO DAILY 02/03/20 [History] tiZANidine [Zanaflex] 4 mg PO Q6H 02/03/20 [History] Omeprazole 40 mg PO DAILY 02/04/20 [History] Folic Acid 1 mg PO DAILY #20 tablet 02/06/20 [Rx] Magnesium Oxide [Magnesium] 400 mg PO DAILY #3 tablet 02/06/20 [Rx] Potassium Chloride 40 meq PO DAILY 3 Days #6 tablet.er 02/06/20 [Rx] Thiamine [Vitamin B-1] 100 mg PO BEDTIME #20 tablet 02/06/20 [Rx] Oxygen Therapy Mode: Room Air Patient Handouts: Acute Kidney Injury, Adult, What You Need to Know About Alcohol Abuse and Dependence, Adult, Hypokalemia, Alcohol Abuse and Nutrition, Potassium Content of Foods Referrals: Yanick Vinson MD [Ordering Only Provider] - 02/13/20 1:40 pm (Please follow up with Dr. Vinson on February 12 at 1:40.) - Discharge Summary/Plan Comment DC Time >30 min.: Yes (45 mins ) - General Info Date of Service: 02/06/20 Admission Dx/Problem (Free Text: Admission Diagnosis/Problem Admission Diagnosis/Problem Hyponatremia Functional Status: Reports: Pain Controlled, Tolerating Diet, Ambulating, Urinating. Denies: New Symptoms - Review of Systems General: Reports: No Symptoms. Denies: Fever, Weakness, Fatigue, Malaise, Chills HEENT: Reports: No Symptoms. Denies: Headaches, Sore Throat Pulmonary: Reports: No Symptoms. Denies: Shortness of Breath, Cough, Sputum, Wheezing Cardiovascular: Reports: No Symptoms. Denies: Chest Pain, Palpitations, Dyspnea on Exertion Gastrointestinal: Reports: No Symptoms. Denies: Constipation, Diarrhea Genitourinary: Reports: Other (hood removed today ). Denies: Pain Musculoskeletal: Reports: No Symptoms Skin: Reports: No Symptoms. Denies: Cyanosis Neurological: Reports: No Symptoms. Denies: Confusion, Weakness, Gait Disturbance Psychiatric: Reports: No Symptoms - Patient Data Vitals - Most Recent: Last Vital Signs Temp 98.1 F 02/06/20 12:12 Pulse 77 02/06/20 12:12 Resp 16 02/06/20 12:12 BP 137/92 H 02/06/20 12:12 Pulse Ox 96 02/06/20 12:12 Orthostatic Blood Pressure [ 150/68 Standing] Orthostatic Blood Pressure [ 155/86 Sitting] Orthostatic Blood Pressure [ 145/67 Supine] Weight - Most Recent: 221 lb 4.8 oz I&O - Last 24 hours: Intake & Output 02/05/20 02/06/20 02/06/20 22:59 06:59 14:59 Intake Total 2100 800 200 Output Total 750 1500 Balance 1350 -700 200 Lab Results - Last 24 hrs: Laboratory Results - last 24 hr 02/05/20 02/05/20 02/05/20 Range/Units 14:00 17:51 22:16 Sodium 137 137 137 (136-145) mEq/L Potassium (3.5-5.1) mEq/L Chloride (98-107) mEq/L Carbon Dioxide (21-32) mEq/L Anion Gap (5-15) BUN (7-18) mg/dL Creatinine (0.7-1.3) mg/dL Est Cr Clr Drug Dosing mL/min Estimated GFR (MDRD) (>60) mL/min BUN/Creatinine Ratio (14-18) Glucose (74-106) mg/dL Calcium (8.5-10.1) mg/dL Phosphorus (2.6-4.7) mg/dL Magnesium (1.8-2.4) mg/dl 02/06/20 02/06/20 02/06/20 Range/Units 02:25 06:43 09:20 Sodium 137 138 139 (136-145) mEq/L Potassium 3.3 L (3.5-5.1) mEq/L Chloride 101 (98-107) mEq/L Carbon Dioxide 28 (21-32) mEq/L Anion Gap 13.3 (5-15) BUN 16 (7-18) mg/dL Creatinine 1.1 (0.7-1.3) mg/dL Est Cr Clr Drug Dosing 66.77 mL/min Estimated GFR (MDRD) > 60 (>60) mL/min BUN/Creatinine Ratio 14.5 (14-18) Glucose 151 H (74-106) mg/dL Calcium 9.3 (8.5-10.1) mg/dL Phosphorus 3.1 (2.6-4.7) mg/dL Magnesium 1.6 L (1.8-2.4) mg/dl MELISSA Results - Last 24 hrs: Microbiology 02/03/20 20:43 Urine Culture - Final Urine, Clean Catch MIXED MED SUGGESTIVE OF CONTAMINATION. Med Orders - Current: Current Medications Hydrocodone Bitart/Acetaminophen (Belton 325-10 Mg) 1 tab PO Q6H PRN PRN Reason: Pain Last Admin: 02/05/20 14:26 Dose: 1 tab Amlodipine Besylate (Norvasc) 5 mg PO DAILY [facility] Last Admin: 02/06/20 09:08 Dose: 5 mg Celecoxib (Celebrex) 200 mg PO DAILY [facility] Last Admin: 02/06/20 09:07 Dose: 200 mg Diphenhydr/Magaldrate/Simeth/Lidoca (First-Mouthwash Blm Susp) 30 ml PO QID PRN PRN Reason: Canker sores Last Admin: 02/05/20 16:51 Dose: 30 ml Enoxaparin Sodium (Lovenox) 40 mg SUBCUT DAILY [facility] Last Admin: 02/06/20 09:08 Dose: 40 mg Folic Acid (Folic Acid) 1 mg PO DAILY [facility] Last Admin: 02/06/20 09:07 Dose: 1 mg Levothyroxine Sodium (Synthroid) 100 mcg PO ACBREAKFAST [facility] Last Admin: 02/06/20 06:12 Dose: 100 mcg Lisinopril (Prinivil) 20 mg PO DAILY [facility] Last Admin: 02/06/20 09:08 Dose: 20 mg Potassium Chloride (Klor-Con M20) 40 meq PO BID [facility] Last Admin: 02/06/20 12:24 Dose: 40 meq Simvastatin (Zocor) 20 mg PO DAILY [facility] Last Admin: 02/06/20 09:07 Dose: 20 mg Thiamine HCl (Vitamin B-1) 100 mg PO BEDTIME [facility] Last Admin: 02/05/20 21:12 Dose: 100 mg Tizanidine HCl (Zanaflex) 4 mg PO Q6H [facility] Last Admin: 02/06/20 13:42 Dose: 4 mg Zolpidem Tartrate (Ambien) 10 mg PO BEDTIME [facility] Last Admin: 02/05/20 21:12 Dose: 10 mg Discontinued Medications Hydrochlorothiazide (Hydrochlorothiazide) 25 mg PO DAILY [facility] Last Admin: 02/05/20 09:30 Dose: 25 mg Lactated Ringer's (Ringers, Lactated) 1,000 mls @ 999 mls/hr IV .BOLUS ONE Stop: 02/03/20 22:09 Last Admin: 02/03/20 21:51 Dose: 999 mls/hr Lactated Ringer's (Ringers, Lactated) 1,000 mls @ 150 mls/hr IV ASDIRECTED [facility] Sodium Chloride (Normal Saline) 1,000 mls @ 150 mls/hr IV ASDIRECTED [facility] Last Admin: 02/04/20 06:52 Dose: 150 mls/hr Potassium Chloride 10 meq/ (Premix) 100 mls @ 100 mls/hr IV ASDIRECTED [facility] Stop: 02/06/20 01:14 Last Admin: 02/04/20 02:27 Dose: 100 mls/hr Dextrose/Water (Dextrose 5% In Water) 1,000 mls @ 50 mls/hr IV ASDIRECTED [facility] Last Admin: 02/04/20 17:31 Dose: 50 mls/hr Dextrose/Water (Dextrose 5% In Water) 1,000 mls @ 75 mls/hr IV ASDIRECTED [facility] Dextrose/Water (Dextrose 5% In Water) 1,000 mls @ 150 mls/hr IV ASDIRECTED [facility] Last Admin: 02/05/20 06:19 Dose: 150 mls/hr Dextrose/Water (Dextrose 5% In Water) 1,000 mls @ 250 mls/hr IV ASDIRECTED [facility] Potassium Chloride 10 meq/ (Premix) 100 mls @ 100 mls/hr IV Q1H [facility] Stop: 02/05/20 13:29 Last Admin: 02/05/20 15:28 Dose: 100 mls/hr Magnesium Oxide (Magnesium Oxide) 800 mg PO ONETIME ONE Stop: 02/06/20 11:46 Last Admin: 02/06/20 12:23 Dose: 800 mg Potassium Chloride (Klor-Con M20) 40 meq PO ONETIME ONE Stop: 02/03/20 21:11 Last Admin: 02/03/20 21:51 Dose: 40 meq Potassium Chloride (Klor-Con M20) 40 meq PO ONETIME ONE Stop: 02/03/20 23:29 Last Admin: 02/04/20 00:13 Dose: Not Given Tamsulosin HCl (Flomax) 0.4 mg PO ONETIME ONE Stop: 02/04/20 01:32 Last Admin: 02/04/20 02:27 Dose: 0.4 mg - Exam Quality Assessment: Reports: DVT Prophylaxis. Denies: Supplemental Oxygen, Urine Catheter (removed today with good output since) General: Reports: Alert, Oriented, Cooperative, No Acute Distress HEENT: Reports: Pupils Equal, Pupils Reactive, Mucous Membr. Moist/[place] Neck: Reports: Supple, Trachea Midline Lungs: Reports: Clear to Auscultation, Normal Respiratory Effort Cardiovascular: Reports: Regular Rate, Regular Rhythm GI/Abdominal Exam: Normal Bowel Sounds, Soft, Non-Tender, No Distention (Male) Exam: Deferred Rectal (Males) Exam: Deferred Back Exam: Reports: Normal Inspection, Full Range of Motion Extremities: Normal Inspection, Normal Range of Motion, Non-Tender, No Pedal Edema, Normal Capillary Refill Skin: Reports: Warm, Dry, Intact Neurological: Reports: No New Focal Deficit Psy/Mental Status: Reports: Alert
== END 2020-02-06 14:00 | disposition home or self-care (01) | DRG 469 ==
LOC: JD.ED 18:42 → JD.MS 22:46 → OBSVTOIN 02-06 09:46
PROVIDERS: ADMIT Internal Medicine; ATTEND Internal Medicine
PROC: 0T9B70Z Drainage of Bladder with Drainage Device, Via Natural or Artificial Opening (ICD-10-PCS; principal; 2020-02-06)
DX: N17.9 Acute kidney failure, unspecified (principal); E87.1 Hypo-osmolality and hyponatremia; G93.40 Encephalopathy, unspecified; E78.5 Hyperlipidemia, unspecified; E03.9 Hypothyroidism, unspecified; K21.9 Gastro-esophageal reflux disease without esophagitis; M54.9 Dorsalgia, unspecified; G89.29 Other chronic pain; G47.00 Insomnia, unspecified; E86.9 Volume depletion, unspecified; E87.6 Hypokalemia; I12.9 Hypertensive chronic kidney disease with stage 1 through stage 4 chronic kidney disease, or unspecified chronic kidney disease; N18.3 Chronic kidney disease, stage 3 (moderate); R33.9 Retention of urine, unspecified; F10.20 Alcohol dependence, uncomplicated; S46.001A Unspecified injury of muscle(s) and tendon(s) of the rotator cuff of right shoulder, initial encounter; D72.829 Elevated white blood cell count, unspecified; W19.XXXA Unspecified fall, initial encounter; Y92.89 Other specified places as the place of occurrence of the external cause; Y93.89 Activity, other specified; R19.7 Diarrhea, unspecified; E83.39 Other disorders of phosphorus metabolism; Z79.899 Other long term (current) drug therapy; Z79.890 Hormone replacement therapy; Z87.442 Personal history of urinary calculi; Z86.010 Personal history of colon polyps; Z98.890 Other specified postprocedural states
CPT/HCPCS: 36415; 51701; 51702; 51798; 70450; 70450-26; 72125; 72125-26; 80048; 80053; 80306; 80307; 81001; 82306; 82550; 82570; 82607; 82746; 83605; 83735; 84100; 84295; 84300; 85025; 85610; 85730; 87086; 96360; 96361; 96365; 96366; 96372; 99220; 99225; 99239; 99285; 99285-25; A9270-GY; G0378; J1650; J3480; J7030; J7060; J7120

== ENCOUNTER 2024-08-26 12:27 | Emergency (ER) | payer BC, OTHER ==
[2024-08-26] MEDS: Sodium Chloride 0.9% 10 ML Syringe FLUSH ONE (12:51)
[2024-08-26] MEDS: Iopamidol 755 Mg/ML 100 ML Bottle IVPUSH ONE (12:51)
[2024-08-26] MEDS: Sodium Chloride 0.9% 100 ML IV SCH (12:51)
[2024-08-26 12:54] LABS: BASOPHILS PERCENT AUTO 0.4 % (0.0-1.0); EOSINOPHILS ABSOLUTE AUTO 0.2 K/mm3 (0.0-0.4); EOSINOPHILS PERCENT AUTO 1.5 % (0.0-6.0); HEMATOCRIT 39.8 % (42.0-52.0); HEMOGLOBIN 13.5 gm/dl (14.0-18.0); IMMATURE GRAN ABSOLUTE AUTO 0.06 K/mm3 (0.00-0.05); IMMATURE GRAN PERCENT AUTO 0.6 % (0.0-0.4); LYMPHOCYTES ABSOLUTE AUTO 2.6 K/mm3 (1.0-4.8); LYMPHOCYTES PERCENT AUTO 26.7 % (24.0-44.0); MEAN CORPUSCULAR HEMOGLOBIN 31.8 pg (28.0-32.0); MEAN CORPUSCULAR HGB CONC 33.9 g/dl (32.0-36.0); MEAN CORPUSCULAR VOLUME 93.9 fl (83.0-99.0); MEAN PLATELET VOLUME 9.4 fl (9.4-12.4); MONOCYTES ABSOLUTE AUTO 0.9 K/mm3 (0.0-0.8); MONOCYTES PERCENT AUTO 8.8 % (0.0-8.0); NEUTROPHILS ABSOLUTE AUTO 6.1 K/mm3 (1.8-7.7); PLATELET COUNT,PLT 264 K/mm3 (150-400); RED BLOOD CELL COUNT 4.24 M/mm3 (4.52-5.90); WHITE BLOOD CELL COUNT,WBC 9.86 K/mm3 (3.9-11.3)
[2024-08-26 13:12] LABS: INR 1.08; PROTHROMBIN TIME 11.4 SECONDS (9.7-12.0)
[2024-08-26 13:13] LABS: PTT,PARTIAL THROMBOPLSTIN TIME 24.2 SECONDS (21.7-31.4)
[2024-08-26 13:17] LABS: A/G RATIO 1.2 (1-2); ALBUMIN 3.4 g/dl (3.4-5.0); BILIRUBIN TOTAL 0.3 mg/dL (0.2-1.0); BUN/CREATININE RATIO 14.6 (14-18); CREATININE 1.3 mg/dL (0.7-1.3); EST CRCL DRUG DOSING (CG) 51.8 mL/min; PROTEIN TOTAL,TP 6.3 g/dl (6.4-8.2)
[2024-08-26] MEDS: Acetaminophen 325 MG Tab PO ONE (13:52)
[2024-08-26] MEDS: Sodium Chloride 0.9% 500 ML IV SCH (14:27)
== END 2024-08-26 15:30 | disposition home or self-care (01) ==
LOC: JD.ED 12:27
DX: S00.512A Abrasion of oral cavity, initial encounter (principal); R41.82 Altered mental status, unspecified; I10 Essential (primary) hypertension; Z79.899 Other long term (current) drug therapy; X58.XXXA Exposure to other specified factors, initial encounter
CPT/HCPCS: 36415; 70450; 70496; 70498; 80053; 80307; 82550; 82947; 83605; 84484; 85025; 85610; 85730; 93005; 96360; 99285; A9270; J3490; J7030; Q9967; 93010; 99291